=== PATIENT | male | born 1970 | race African-American/Black ===

== ENCOUNTER 2024-04-12 11:30 | Outpatient (AMB) | payer OTHER, SELFPAY ==
--- NOTE | 2024-04-12 11:16 | PD.ORTHTELE ---
Med/Allergies Allergies & Medications Allergies honey Allergy (Verified 04/12/24 11:16) morphine Allergy (Verified 04/12/24 11:16) Penicillins Allergy (Verified 04/12/24 11:16) Medication Reconciliation B.coagulans 2 billion cell-digestive enzymes combo no.10 capsule cap PO 03/29/24 [History Confirmed 04/12/24] amlodipine 5 mg tablet 5 mg PO QDAY 03/29/24 [History Confirmed 04/12/24] atorvastatin 40 mg tablet 40 mg PO QDAY 03/29/24 [History Confirmed 04/12/24] duloxetine 60 mg capsule,delayed release 60 mg PO QDAY 03/29/24 [History Confirmed 04/12/24] fluticasone fur. 100 mcg-umeclid 62.5 mcg-vilant 25 mcg inhalat.powder (Trelegy Ellipta) 1 inh inhalation Q24H 03/29/24 [History Confirmed 04/12/24] fluticasone furoate 100 mcg-vilanterol 25 mcg/dose inhalation powder (Breo Ellipta) 1 inh inhalation Q24H 03/29/24 [History Confirmed 04/12/24] loratadine 10 mg tablet 10 mg PO QDAY 03/29/24 [History Confirmed 04/12/24] mirabegron 25 mg tablet,extended release 24 hr (Myrbetriq) 25 mg PO QDAY 03/29/24 [History Confirmed 04/12/24] montelukast 10 mg tablet 10 mg PO QDAY 03/29/24 [History Confirmed 04/12/24] omeprazole 20 mg capsule,delayed release 20 mg PO QDAY 03/29/24 [History Confirmed 04/12/24] pen needle, diabetic 30 gauge x 5/16 (Pen Needle) 03/29/24 [History Confirmed 04/12/24] rivaroxaban 20 mg tablet (Xarelto) 20 mg PO QDAY 03/29/24 [History Confirmed 04/12/24] umeclidinium 62.5 mcg-vilanterol 25 mcg/actuation powdr for inhalation (Anoro Ellipta) 1 inh inhalation Q24H 03/29/24 [History Confirmed 04/12/24] varenicline 0.5 mg tablet 0.5 mg PO DIRECTED 03/29/24 [History Confirmed 04/12/24] Subjective Visit Visit for: follow up visit, knee and x-rays Immunization / Flu Flu Vaccine in the Last 12 Months: No Flu Vaccine Exclusion Criteria: No Exclusion Criteria History of Present Illness Chief complaint: telemed visit xrays done at the [facility] in [place] Patient is a pleasant 53-year-old male with bilateral hip and bilateral knee pain. The knee pain is worse on the right. He also significant back issues. She has had 2 injections in both knees. He reports that he had no relief at all. He reports a lot of his pain starts in his back and goes down his legs. He has used a cane to ambulate Personal History Red flag PMH: smoker and Blood thinners Pain Pain level (0-10): 8 Pain duration: all day Pain location: inside (medial), outside (lateral), anterior and posterior Pain quality: sharp, dull, aching and burning Pain timing: increases with activity Associated signs & symptoms: numbness, weakness and stiffness Ambulatory data Ambulatory device: none Treatments Number of previous injections: 2 Improvement with previous injections: No Number of Physical Therapy sessions: 48 Improvement with PT: No Improvement with NSAIDS: n/a Review of Systems Review of Systems: All systems negative unless otherwise noted in HPI. Assessment and Plan Problem List (1) Arthritis of both knees: Status: Acute Plan: Patient is a pleasant 53-year-old male with significant bilateral hip and knee pain. We are concerned that a lot of his pain is from his back. He describes radicular pain rating down his legs. We does have high suspicion for spinal stenosis. We will get imaging for his back. Office Procedures GNS Level of Care Nursing/Assessment Patient Status: Established Patient Nursing Assessment/Reassesment: Medication Reconciliation, Update PMH in EMR and Vital Signs Coordination of Care: Complex Care and Chronic Disease 1-5, Education Complex Pt/Fam, Consent,records obtained, informed consent, Results/Orders obtained and Staff clarify orders Special Needs: Language special needs Established Patient Charge Established Patient Point Assignment: 95 Telehealth Telemed Phone/Video with patient at home & Dr,PA,AUTHORIZATION COORDINATOR: Yes
== END 2024-04-12 11:31 | disposition home or self-care (01) ==
LOC: HODSRG 11:30
PROVIDERS: Supervising Provider Orthopaedic Surgery Adult Reconstructive Orthopaedic Surgery; Visit Provider Orthopaedic Surgery Adult Reconstructive Orthopaedic Surgery
DX: M17.0 Bilateral primary osteoarthritis of knee (principal); M25.562 Pain in left knee; M25.561 Pain in right knee; M25.552 Pain in left hip; M25.551 Pain in right hip
CPT/HCPCS: 99212; G0463